=== PATIENT | male | born 1955 | race Two or more races ===

== ENCOUNTER 2020-01-10 10:03 | Inpatient (IN) | payer OTHER, MEDICAID ==
[~2020-01-10] VITALS: Ht 154.9 cm; Wt 59.0 kg
[2020-01-10 10:57] LABS: BASO # 0.1 x10^3/uL (0.0-0.2); BASO % 1 % (0-3); EOS # 0.1 x10^3/uL (0.0-0.7); EOS % 1 % (0-3); HEMATOCRIT 43.5 % (39.0-53.0); LYMPH # 1.4 x10^3/uL (1.0-4.8); LYMPH % 13 % (24-48); MEAN CORPUSCULAR HEMOGLOBIN 32 pg (25-35); MEAN CORPUSCULAR HGB CONC 35 g/dL (31-37); MEAN CORPUSCULAR VOLUME 94 fL (79-100); MONO # 1.2 x10^3/uL (0.0-1.1); MONO % 11 % (0-9); NEUT # 8.2 x10^3/uL (1.8-7.7); NEUT % 75 % (31-73); PLATELET COUNT 546 x10^3/uL (140-400); RED BLOOD COUNT 4.64 x10^6/uL (4.30-5.70); RED CELL DISTRIBUTION WIDTH 13.2 % (11.5-14.5)
[2020-01-10 10:59] LABS: BILIRUBIN,URINE NEGATIVE (NEG); CLARITY,URINE CLEAR; COLOR,URINE YELLOW; NITRITE,URINE NEGATIVE (NEG); PROTEIN,URINE NEGATIVE (NEG-TRACE); UROBILINOGEN,URINE 0.2 mg/dL (0.2 mg/dL)
[2020-01-10 11:06] LABS: PROTHROMBIN TIME PATIENT 13.5 SEC (11.7-14.0)
[2020-01-10 11:07] LABS: BACTERIA,URINE 0 /HPF (0-FEW); RBC,URINE 0 /HPF (0-2); SQUAMOUS EPITHELIAL CELL,UR OCC /LPF; WBC,URINE 0 /HPF (0-4)
--- NOTE | 2020-01-10 11:35 | RAD ---
Single AP view of the chest. Comparison: 08/20/2011. Indication: Cough and shortness of air Findings: Sternotomy wires and CABG clips are reidentified. The heart is enlarged but stable. There is no pneumothorax or effusion. Mixed bilateral basilar interstitial and airspace disease. Impression: 1. Mixed bilateral predominantly basilar but involving all lung zones interstitial and airspace disease suggests atypical infection or chronic fibrotic change/inflammatory change. Electronically signed by: Jaleel Linares MD (01/10/2020 11:32 AM) [id number]
--- NOTE | 2020-01-10 11:42 | PHYS DOC ---
Past Medical History Past Medical History: High Cholesterol, Hypertension Additional Past Medical Histor: CAROTID ARTERY STENOSIS, BARRETTS ESOPHAGUS Additional Past Surgical Histo: CABG Smoking Status: Current Every Day Smoker Additional Information: PT USES VAPE PEN. Alcohol Use: None General Adult EDM: Chief Complaint: SHORTNESS OF BREATH HPI: HPI: Patient is a 64 year old male who was diagnosed with COVID-19 infection about 2 weeks ago at [facility]. Patient was discharged home without any treatment at this time. 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 Patient went to see her family doctor today for reevaluation, he was found to be hypoxic in the clinic with oxygen saturation of 85% on room air. Patient was a former smoker, he is has stopped smoking AND TOOK UP VAPING Review of Systems: Review of Systems: Constitutional: Denies fever or chills. [] Eyes: Denies change in visual acuity. [] HENT: Denies nasal congestion or sore throat. [] Respiratory: Positive for cough or shortness of breath. [] Cardiovascular: Denies chest pain or edema. [] GI: Denies abdominal pain, nausea, vomiting, bloody stools or diarrhea. [] : Denies dysuria. [] Musculoskeletal: Denies back pain or joint pain. [] Integument: Denies rash. [] Neurologic: Denies headache, focal weakness or sensory changes. [] Endocrine: Denies polyuria or polydipsia. [] Lymphatic: Denies swollen glands. [] Psychiatric: Denies depression or anxiety. [] Heart Score: Risk Factors: Risk Factors: DM, Current or recent (<one month) smoker, HTN, HLP, family history of CAD, obesity. Risk Scores: Score 0 - 3: 2.5% MACE over next 6 weeks - Discharge Home Score 4 - 6: 20.3% MACE over next 6 weeks - Admit for Clinical Observation Score 7 - 10: 72.7% MACE over next 6 weeks - Early Invasive Strategies Allergies: Allergies: Allergies Coded Allergies Type Severity Reaction Last Updated Verified No Known Drug Allergies 01/10/20 No Physical Exam: PE: Constitutional: Well developed, well nourished, no acute distress, non-toxic appearance. [] HENT: Normocephalic, atraumatic, bilateral external ears normal, oropharynx moist, no oral exudates, nose normal. [] Eyes: PERRLA, EOMI, conjunctiva normal, no discharge. [] Neck: Normal range of motion, no tenderness, supple, no stridor. [] Cardiovascular:Heart rate regular rhythm, no murmur [] Lungs & Thorax: Diffuse crackles throughout lung perez, no respiratory distress Abdomen: Bowel sounds normal, soft, no tenderness, no masses, no pulsatile masses. [] Skin: Warm, dry, no erythema, no rash. [] Back: No tenderness, no CVA tenderness. [] Extremities: No tenderness, no cyanosis, no clubbing, ROM intact, no edema. [] Neurologic: Alert and oriented X 3, normal motor function, normal sensory function, no focal deficits noted. [] Psychologic: Affect normal, judgement normal, mood normal. [] Current Patient Data: Labs: Laboratory Tests Test 01/10/20 10:35 White Blood Count 11.0 x10^3/uL (4.0-11.0) Red Blood Count 4.64 x10^6/uL (4.30-5.70) Hemoglobin 15.0 g/dL (13.0-17.5) Hematocrit 43.5 % (39.0-53.0) Mean Corpuscular Volume 94 fL (79-100) Mean Corpuscular Hemoglobin 32 pg (25-35) Mean Corpuscular Hemoglobin Concent 35 g/dL (31-37) Red Cell Distribution Width 13.2 % (11.5-14.5) Platelet Count 546 x10^3/uL (140-400) H Neutrophils (%) (Auto) 75 % (31-73) H Lymphocytes (%) (Auto) 13 % (24-48) L Monocytes (%) (Auto) 11 % (0-9) H Eosinophils (%) (Auto) 1 % (0-3) Basophils (%) (Auto) 1 % (0-3) Neutrophils # (Auto) 8.2 x10^3/uL (1.8-7.7) H Lymphocytes # (Auto) 1.4 x10^3/uL (1.0-4.8) Monocytes # (Auto) 1.2 x10^3/uL (0.0-1.1) H Eosinophils # (Auto) 0.1 x10^3/uL (0.0-0.7) Basophils # (Auto) 0.1 x10^3/uL (0.0-0.2) Prothrombin Time 13.5 SEC (11.7-14.0) Prothrombin Time INR 1.1 (0.8-1.1) Activated Partial Thromboplast Time 36 SEC (24-38) Urine Collection Type Void Urine Color Yellow Urine Clarity Clear Urine pH 6.0 (<5.0-8.0) Urine Specific [place] <=1.005 (1.000-1.030) Urine Protein Negative mg/dL (NEG-TRACE) Urine Glucose (UA) Negative mg/dL (NEG) Urine Ketones (Stick) Negative mg/dL (NEG) Urine Blood Negative (NEG) Urine Nitrite Negative (NEG) Urine Bilirubin Negative (NEG) Urine Urobilinogen Dipstick 0.2 mg/dL (0.2 mg/dL) Urine Leukocyte Esterase Negative (NEG) Urine RBC 0 /HPF (0-2) Urine WBC 0 /HPF (0-4) Urine Squamous Epithelial Cells Occ /LPF Urine Bacteria 0 /HPF (0-FEW) Lactic Acid Level 1.4 mmol/L (0.4-2.0) Troponin I Quantitative < 0.017 ng/mL (0.000-0.055) KK-Zgo-T-Type Natriuretic Peptide 192 pg/mL (0-124) H Laboratory Tests 01/10/20 10:35 Vital Signs: Vital Signs Date Time Temp Pulse Resp B/P (MAP) Pulse Ox O2 Delivery O2 Flow Rate FiO2 01/10/20 10:10 98.0 71 18 132/79 (96) 94 Room Air 98.0 EKG: EKG: [EKG was done at 1014, sinus rhythm, heart rate 68 bpm, incomplete right bundle branch block. Radiology/Procedures: Radiology/Procedures: [][facility] [address] [place] [address] IMAGING REPORT Signed PATIENT: NII SCHAFER: [id number] : 1955 LOCATION: ER AGE: 64 SEX: M EXAM STATUS: REG ER ORD. PHYSICIAN: FRANKLIN PENA DO REASON: COUGH, SHORTNESS OF AIR PROCEDURE: CHEST AP ONLY Single AP view of the chest. Comparison: 08/20/2011. Indication: Cough and shortness of air Findings: Sternotomy wires and CABG clips are reidentified. The heart is enlarged but stable. There is no pneumothorax or effusion. Mixed bilateral basilar interstitial and airspace disease. Impression: 1. Mixed bilateral predominantly basilar but involving all lung zones interstitial and airspace disease suggests atypical infection or chronic fibrotic change/inflammatory change. Electronically signed by: Jaleel Linares MD (01/10/2020 11:32 AM) [id number] DICTATED and SIGNED BY: JALEEL LINARES MD DATE: 01/10/20 1132 Course & Med Decision Making: Course & Med Decision Making Pertinent Labs and Imaging studies reviewed. (See chart for details) Patient is a 64-year-old male who was diagnosed with COVID-19 infection about 2 weeks ago at [facility]. Patient was discharged home without any treatment at this time. 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 Patient went to see her family doctor today for reevaluation, he was found to be hypoxic in the clinic with oxygen saturation of 85% on room air. Patient was a former smoker, he is has stopped smoking AND TOOK UP VAPING. Patient chest x-ray showed diffuse bilateral infiltration consistent with COVID-19 pneumonia. He is hypoxic on room air, his saturations run between 89 to 92% on room air. Patient is not on oxygen at home. Patient will need to be admitted to hospital for further evaluation and treatment. Dr. Ashby hospitalist on-call was called who agreed to admit the patient. Dr. Ashby would like pulmonology and infectious disease to be consulted. David Disclaimer: David Disclaimer: This electronic medical record was generated, in whole or in part, using a voice recognition dictation system. Departure Departure Impression: Primary Impression: Pneumonia due to COVID-19 virus Additional Impression: Hypoxia Disposition: ADMITTED INPATIENT Admitting Physician: YAHAIRA (Dr. ASHBY) Referrals: UNKNOWN PCP NAME (PCP) Justicifation of Admission Dx: Justifications for Admission: Justification of Admission Dx: Yes Comminuty Aquired Pneumonia: Hypoxemia FRANKLIN PENA DO Jan 10, 2020 11:42
[2020-01-10 11:51] LABS: CREATININE 0.9 mg/dL (0.7-1.3); GFR 84.7; POTASSIUM 4.4 mmol/L (3.5-5.1)
[2020-01-10 11:57] LABS: ALBUMIN 2.9 g/dL (3.4-5.0); ALBUMIN/GLOBULIN RATIO 0.6 (1.0-1.7); TOTAL BILIRUBIN 0.3 mg/dL (0.2-1.0)
[2020-01-10] MEDS ORDERED: cefTRIAXone IV Push 1 GM VIAL. IVP ONE (14:30)
[2020-01-10] MEDS ORDERED: methylPREDNISolone SOD SUCC PF 125 MG/2 ML VIAL. IV ONE (15:00)
[2020-01-10] MEDS ORDERED: ONDANSETRON PF 4 MG/2 ML VIAL. IV PRN (15:15)
[2020-01-10] MEDS ORDERED: ATOR40TA59 PO (17:04)
[2020-01-10] MEDS ORDERED: PANT40TA77 PO (17:04)
[2020-01-10] MEDS ORDERED: LISI10TA2 PO (17:04)
[2020-01-10] MEDS ORDERED: NAPR-514 PO (17:04)
[2020-01-10] MEDS ORDERED: TRAZ-123 PO (17:04)
[2020-01-10] MEDS ORDERED: ATEN50TA PO (17:04)
[2020-01-10] MEDS ORDERED: ACET500T68 PO (17:04)
[2020-01-10] MEDS ORDERED: ASPI-886 PO (17:04)
[2020-01-10 19:00] VITALS: BP 119/66
--- NOTE | 2020-01-10 19:50 | CONS ---
DATE OF CONSULTATION: PULMONARY CONSULTATION ATTENDING PHYSICIAN: Dr. Ashby. REASON FOR CONSULTATION: COVID-19 pneumonia. HISTORY OF PRESENT ILLNESS: The patient is a 64-year-old male who does not speak Malian well. He was diagnosed with COVID-19 infection about 2 weeks ago at [facility]. He was discharged home without any treatment. 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 He finished the antibiotic course, but was not feeling any better. He was found to be hypoxic in the clinic with oxygen saturation of 85% on room air. As a result, he was sent to the hospital. I talked to the patient via telemedicine consult. He does not appear to be in any obvious respiratory distress. He is currently on 2 liters of nasal cannula, saturation 97%. I have reviewed the patient's chest x-ray and it shows bilateral faint interstitial infiltrates. The patient is unable to give much history due to language barrier, but he denies any shortness of breath and has a very occasional cough, no chest pain and no leg edema. PAST MEDICAL HISTORY: Significant for history of dyslipidemia, hypertension. PAST SURGICAL HISTORY: Carotid artery stenosis and Olsen's esophagus surgery. CABG. SOCIAL HISTORY: He denies current tobacco. Per H and P, he does smoke cigarettes. ALLERGIES: None. MEDICATIONS: Reviewed as listed in the MRAD including Rocephin. REVIEW OF SYSTEMS: Unable to obtain from the patient due to language barrier. PHYSICAL EXAMINATION: On examination which was performed via telemedicine: VITAL SIGNS: Reviewed. His blood pressure is stable, pulse ox 97% on 2 liters. He does not appear to be in any obvious respiratory distress. SKIN: With no obvious rash. EXTREMITIES: Legs with no edema. LABORATORY DATA: Reviewed. White cell count 11.0, hemoglobin 15.0 and platelets are 546. BUN 12 and creatinine 0.9. IMPRESSION: 1. Acute hypoxic respiratory failure secondary to COVID-19 pneumonia. 2. Abnormal chest x-ray consistent with COVID-19 pneumonia. RECOMMENDATIONS: 1. We will continue with present oxygen at 2 liters and keep saturation 92 and above. 2. Empiric antibiotics. 3. Monitor the course of the disease. We will watch for any deterioration and hypoxia. At that time, we may consider plasma as well as IL-6 inhibitor, tocilizumab. 4. We may also consider IV steroids. 5. Discussed with the patient's RN. We will follow along with you. GUNJAN IRELAND MD DR: CECILE/latricia JOB#: [id number] / [id number]
--- NOTE | 2020-01-10 20:13 | HP ---
ADMIT DATE: 01/10/2020 CHIEF COMPLAINT: Shortness of breath. HISTORY OF PRESENT ILLNESS: The patient is a pleasant 64-year-old male who has recently tested positive for COVID-19 at a clinic at [facility]. Now, he is short of breath. He presented to our ER for evaluation. He is noted to be hypoxic at 85% on room air. Describes his symptoms as very anxiety producing. He used to smoke cigarettes, but quit. Moving makes it worse and sitting still makes it better. We were concerned he could have recurrent COVID-19 with progression of his pneumonia. The patient will be admitted. We will consult Dr. Sharpe. PAST MEDICAL HISTORY: Recent COVID-19, previous tobacco abuse, hyperlipidemia, carotid artery stenosis, Olsen's esophagus, coronary artery bypass grafting, continued tobacco abuse. ALLERGIES: None. FAMILY HISTORY: Diabetes. SOCIAL HISTORY: He has apparently quit smoking recently. Does not drink or take drugs. MEDICATIONS: Reviewed, please refer to the MRAD. REVIEW OF SYSTEMS: GENERAL: No history of weight change, weakness or fevers. SKIN: No bruising, hair changes or rashes. EYES: No blurred, double or loss of vision. NOSE AND THROAT: No history of nosebleeds, hoarseness or sore throat. HEART: No history of palpitations, chest pain or shortness of breath on exertion. PULMONARY: He complains of shortness of breath. GASTROINTESTINAL: Denies changes in appetite, nausea, vomiting, diarrhea or constipation. GENITOURINARY: No history of frequency, urgency, hesitancy or nocturia. NEUROLOGIC: Denies history of numbness, tingling, tremor or weakness. PSYCHIATRIC: No history of panic, anxiety or depression. ENDOCRINE: No history of heat or cold intolerance, polyuria or polydipsia. EXTREMITIES: Denies muscle weakness, joint pain, pain on walking or stiffness. PHYSICAL EXAMINATION: VITALS: Within normal limits and are stable. GENERAL: No apparent distress. Alert and oriented. HEENT: Normal cephalic atraumatic, external auditory canals are patent EYES: Extraocular muscles are intact, pupils are equally round and reactive to light and accommodation MUSCULOSKELETAL: Well developed, well nourished, good range of motion ENDOCRINE: No thyromegaly was palpated LYMPHATICS: No cervical chain or axillary nodes were noted HEMATOPOIETIC: No bruising NECK: Supple, no JVD, no thyromegaly was noted. LUNGS: He has slight bibasilar crackles. HEART: RRR, S1, S2 present. Peripheral pulses intact, no obvious murmurs were noted. ABDOMEN: Soft, nontender. Positive bowel sounds no organomegaly, normal bowel sounds. EXTREMITIES: Without any cyanosis, clubbing, or edema. Pedal pulses intact, Homans sign is negative. NEUROLOGIC: Normal speech, normal tone. A & O x3, moves all extremities, no obvious focal deficits. PSYCHIATRIC: Normal affect, normal mood. Stable. SKIN: No ulcerations or rashes, good skin turgor, no jaundice. VASCULAR: Good capillary refill, neurovascular bundle appears to be intact. LABORATORY DATA: White count is 11. Electrolytes are normal. Liver function tests are within normal limits. INR is 1.1. Urinalysis negative. IMAGING: Chest x-ray shows mixed bilateral predominantly basilar but involving all lung zones, interstitial and airspace disease, suggestive of atypical infection or chronic fibrotic changes or inflammatory changes. ASSESSMENT AND PLAN: Hypoxia, shortness of breath, abnormal chest x-ray concerned for a recurrent or persistent COVID-19. The patient has been admitted. We are consulting Dr. Sharpe. IV antibiotics, breathing treatments, oxygen, home meds, DVT prophylaxis. Full code. IV Solu-Medrol, p.r.nJackelin Friedman. LARS SHELLEY DO DR: TRESA/latricia JOB#: [id number] / [id number]
--- NOTE | 2020-01-10 20:24 | NUR ---
Pt has paper work from visit today at [facility]. He was seen for shortness of breath and body aches. Assessment and Plan states Disease caused by 2019 novel coronavirus. Pt reports he and his have recently tested positive.
[2020-01-10] MEDS: methylPREDNISolone SOD SUCC PF 40 MG/ML VIAL. IV SCH (21:34)
[2020-01-10] MEDS ORDERED: ACETAMINOPHEN 500 MG TABLET PO PRN (22:30)
[2020-01-10] MEDS: traZODone 100 MG TABLET. PO SCH (22:43)
[2020-01-10] MEDS: ATORVASTATIN CALCIUM 40 MG TABLET. PO SCH (22:44)
[2020-01-10] MEDS: NAPROXEN 500 MG TABLET PO SCH (22:44)
[2020-01-10 23:00] VITALS: BP 118/55
[2020-01-11 02:44] VITALS: BP 104/55
--- NOTE | 2020-01-11 03:07 | EKG ---
[facility] [address] [place] [address] Test Date: 2020-01-10 Test Time: 10:14:42 Pat Name: HARLAN SCHAFER Department: Room: Gender: M Charge Nurse: : 1955 Requested By: FRANKLIN PENA Order Number: [id number] Reading MD: Measurements Intervals Lawrence Rate: 68 P: 44 ND: 168 QRS: 0 QRSD: 80 T: 41 QT: 390 QTc: 419 Interpretive Statements SINUS RHYTHM LEFTWARD AXIS INCOMPLETE RIGHT BUNDLE BRANCH BLOCK OTHERWISE NORMAL ECG RI6.01 No previous ECG available for comparison
[2020-01-11] MEDS: methylPREDNISolone SOD SUCC PF 40 MG/ML VIAL. IV SCH ×3 (06:13→22:09)
[2020-01-11 07:00] VITALS: BP 125/69
[2020-01-11] MEDS: NAPROXEN 500 MG TABLET PO SCH ×2 (08:55→22:17)
[2020-01-11] MEDS: ATENOLOL 50 MG TABLET. PO SCH (08:56)
[2020-01-11] MEDS: PANTOPRAZOLE 40 MG TABLET.DR. PO SCH (08:57)
[2020-01-11] MEDS: LISINOPRIL 10 MG TABLET PO SCH (08:57)
[2020-01-11] MEDS: ASPIRIN ENTERIC COATED 81 MG TABLET.DR. PO SCH (08:57)
--- NOTE | 2020-01-11 09:23 | PDOC ---
Infectious Disease Note Vital Sign Vital Signs Vital Signs Date Time Temp Pulse Resp B/P (MAP) Pulse Ox O2 Delivery O2 Flow Rate FiO2 01/11/20 08:57 86 125/69 01/11/20 07:00 99.0 20 92 99.0 01/11/20 02:44 Room Air 01/10/20 23:00 2.0 Labs Lab Laboratory Tests Test 01/10/20 10:35 White Blood Count 11.0 x10^3/uL (4.0-11.0) Red Blood Count 4.64 x10^6/uL (4.30-5.70) Hemoglobin 15.0 g/dL (13.0-17.5) Hematocrit 43.5 % (39.0-53.0) Mean Corpuscular Volume 94 fL (79-100) Mean Corpuscular Hemoglobin 32 pg (25-35) Mean Corpuscular Hemoglobin Concent 35 g/dL (31-37) Red Cell Distribution Width 13.2 % (11.5-14.5) Platelet Count 546 x10^3/uL (140-400) Neutrophils (%) (Auto) 75 % (31-73) Lymphocytes (%) (Auto) 13 % (24-48) Monocytes (%) (Auto) 11 % (0-9) Eosinophils (%) (Auto) 1 % (0-3) Basophils (%) (Auto) 1 % (0-3) Neutrophils # (Auto) 8.2 x10^3/uL (1.8-7.7) Lymphocytes # (Auto) 1.4 x10^3/uL (1.0-4.8) Monocytes # (Auto) 1.2 x10^3/uL (0.0-1.1) Eosinophils # (Auto) 0.1 x10^3/uL (0.0-0.7) Basophils # (Auto) 0.1 x10^3/uL (0.0-0.2) Prothrombin Time 13.5 SEC (11.7-14.0) Prothromb Time International Ratio 1.1 (0.8-1.1) Activated Partial Thromboplast Time 36 SEC (24-38) Urine Collection Type Void Urine Color Yellow Urine Clarity Clear Urine pH 6.0 (<5.0-8.0) Urine Specific Mineral <=1.005 (1.000-1.030) Urine Protein Negative mg/dL (NEG-TRACE) Urine Glucose (UA) Negative mg/dL (NEG) Urine Ketones (Stick) Negative mg/dL (NEG) Urine Blood Negative (NEG) Urine Nitrite Negative (NEG) Urine Bilirubin Negative (NEG) Urine Urobilinogen Dipstick 0.2 mg/dL (0.2 mg/dL) Urine Leukocyte Esterase Negative (NEG) Urine RBC 0 /HPF (0-2) Urine WBC 0 /HPF (0-4) Urine Squamous Epithelial Cells Occ /LPF Urine Bacteria 0 /HPF (0-FEW) Sodium Level 136 mmol/L (136-145) Potassium Level 4.4 mmol/L (3.5-5.1) Chloride Level 102 mmol/L (98-107) Carbon Dioxide Level 27 mmol/L (21-32) Anion Gap 7 (6-14) Blood Urea Nitrogen 12 mg/dL (8-26) Creatinine 0.9 mg/dL (0.7-1.3) Estimated GFR (Cockcroft-Gault) 84.7 BUN/Creatinine Ratio 13 (6-20) Glucose Level 94 mg/dL (70-99) Lactic Acid Level 1.4 mmol/L (0.4-2.0) Calcium Level 9.0 mg/dL (8.5-10.1) Total Bilirubin 0.3 mg/dL (0.2-1.0) Aspartate Amino Transf (AST/SGOT) 27 U/L (15-37) Alanine Aminotransferase (ALT/SGPT) 48 U/L (16-63) Alkaline Phosphatase 71 U/L (46-116) Troponin I Quantitative < 0.017 ng/mL (0.000-0.055) XO-Sup-P-Type Natriuretic Peptide 192 pg/mL (0-124) Total Protein 8.0 g/dL (6.4-8.2) Albumin 2.9 g/dL (3.4-5.0) Albumin/Globulin Ratio 0.6 (1.0-1.7) Micro CXR Impression: 1. Mixed bilateral predominantly basilar but involving all lung zones interstitial and airspace disease suggests atypical infection or chronic fibrotic change/inflammatory change Objective Assessment Leukocytosis Acute Hypoxic Resp failure - recent Azithromycin and Cephalexin H/o COVID CAD H/o Vaping Plan Plan of Care Cont steroids hold additional abx Plasma or additional COVID therapy per Pulm Thank you D/w daughter - in law # [id number] SHAYLEE GARCIA MD Jan 11, 2020 09:23
--- NOTE | 2020-01-11 10:41 | CONS ---
DATE OF CONSULTATION: 01/11/2020 INFECTIOUS DISEASE CONSULTATION NOTE LOCATION: The patient's room #658. REQUESTING PHYSICIAN: Dr. Caldwell. REASON FOR CONSULTATION: COVID. HISTORY OF PRESENT ILLNESS: The patient is a pleasant 64-year-old [place] gentleman who reportedly tested positive at [facility] several weeks ago, but was sent home without therapy. However, at home, he was having chills, more shortness of air, occasional cough and was started on azithromycin and cephalexin at home. Despite that, he presented to [facility] with increasing shortness of air on 01/10/2020. On arrival, he had a white count of 11 with 75% segs. Chest x-ray was performed, showed mixed bilateral predominantly basilar involving all lung zones interstitial airspace disease. He was started on steroids and given a dose of Rocephin and has been admitted to the hospital. Currently, he is sitting upright in bed, states he is feeling much better and he is on room air satting 92%. PAST MEDICAL HISTORY: Positive for history of the above-mentioned COVID, has a history of dyslipidemia, hypertension, and carotid stenosis. PAST SURGICAL HISTORY: He also has surgery for carotid stenosis, Olsen's esophagitis and a CABG procedure. REVIEW OF SYSTEMS: Otherwise, he did have some diarrhea around his COVID diagnosis, but this has improved. Review of systems is otherwise negative except for mentioned above. ALLERGIES: No known drug allergies. 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 CURRENT MEDICATIONS: Include Tylenol, Ecotrin, atenolol, Lipitor, Rocephin x 1, Prinivil, Solu-Medrol 60 q.8 hours, Naprosyn, Zofran, Protonix, and trazodone. PHYSICAL EXAMINATION: VITAL SIGNS: Temperature 99, pulse 86, respirations 20, blood pressure 125/69, and satting 92%. CONSTITUTIONAL: He is sitting upright in bed. He looks well. He is in no acute distress. He smiled. HEENT: Pupils equal and reactive. Normal conjunctivae. Oral cavity, pharynx is clear. No thrush. NECK: Supple. LUNGS: Without wheeze. HEART: S1 and S2. ABDOMEN: Soft, nontender. No guarding or rebound. EXTREMITIES: No clubbing, cyanosis or gross edema. SKIN: Warm to touch without generalized rash. NEUROLOGIC: He is nonfocal and appropriate. PSYCHIATRIC: Affect is pleasant. LABORATORY DATA: White count was 11, hemoglobin was 15, and platelets were 546 with 75% neutrophils. Creatinine was 0.9. Normal liver function study tests. Urinalysis was clean. Radiology reviewed in the history of present illness. IMPRESSION: 1. Leukocytosis. 2. Acute hypoxic respiratory failure, recent azithromycin and cephalexin. 3. History of COVID. 4. Coronary artery disease. 5. History of vaping. RECOMMENDATIONS: We will continue steroids, hold additional antibiotics, plasma, additional COVID therapy per Pulmonary, this was discussed with the [id number]. Discussed with nursing. Thank you ____ for allowing me to participate in this patient's care. Should you have any further questions, please do not hesitate to contact me. SHAYLEE GARCIA MD DR: RUI/latricia JOB#: [id number] / [id number] SENDY
[2020-01-11 11:00] VITALS: BP 139/74
--- NOTE | 2020-01-11 11:38 | PDOC ---
PULMONARY PROGRESS NOTES Subjective no soa Vitals Vital Signs Date Time Temp Pulse Resp B/P (MAP) Pulse Ox O2 Delivery O2 Flow Rate FiO2 01/11/20 11:00 96.2 88 18 139/74 (95) 93 96.2 01/11/20 02:44 Room Air 01/10/20 23:00 2.0 General: Alert, No acute distress Lungs: Clear Cardiovascular: S1 Abdomen: Soft Neuro Exam: Alert Extremities: No Edema Skin: Warm Labs Laboratory Tests Test 01/10/20 10:35 White Blood Count 11.0 x10^3/uL (4.0-11.0) Red Blood Count 4.64 x10^6/uL (4.30-5.70) Hemoglobin 15.0 g/dL (13.0-17.5) Hematocrit 43.5 % (39.0-53.0) Mean Corpuscular Volume 94 fL (79-100) Mean Corpuscular Hemoglobin 32 pg (25-35) Mean Corpuscular Hemoglobin Concent 35 g/dL (31-37) Red Cell Distribution Width 13.2 % (11.5-14.5) Platelet Count 546 x10^3/uL (140-400) Neutrophils (%) (Auto) 75 % (31-73) Lymphocytes (%) (Auto) 13 % (24-48) Monocytes (%) (Auto) 11 % (0-9) Eosinophils (%) (Auto) 1 % (0-3) Basophils (%) (Auto) 1 % (0-3) Neutrophils # (Auto) 8.2 x10^3/uL (1.8-7.7) Lymphocytes # (Auto) 1.4 x10^3/uL (1.0-4.8) Monocytes # (Auto) 1.2 x10^3/uL (0.0-1.1) Eosinophils # (Auto) 0.1 x10^3/uL (0.0-0.7) Basophils # (Auto) 0.1 x10^3/uL (0.0-0.2) Prothrombin Time 13.5 SEC (11.7-14.0) Prothromb Time International Ratio 1.1 (0.8-1.1) Activated Partial Thromboplast Time 36 SEC (24-38) Urine Collection Type Void Urine Color Yellow Urine Clarity Clear Urine pH 6.0 (<5.0-8.0) Urine Specific [place] <=1.005 (1.000-1.030) Urine Protein Negative mg/dL (NEG-TRACE) Urine Glucose (UA) Negative mg/dL (NEG) Urine Ketones (Stick) Negative mg/dL (NEG) Urine Blood Negative (NEG) Urine Nitrite Negative (NEG) Urine Bilirubin Negative (NEG) Urine Urobilinogen Dipstick 0.2 mg/dL (0.2 mg/dL) Urine Leukocyte Esterase Negative (NEG) Urine RBC 0 /HPF (0-2) Urine WBC 0 /HPF (0-4) Urine Squamous Epithelial Cells Occ /LPF Urine Bacteria 0 /HPF (0-FEW) Sodium Level 136 mmol/L (136-145) Potassium Level 4.4 mmol/L (3.5-5.1) Chloride Level 102 mmol/L (98-107) Carbon Dioxide Level 27 mmol/L (21-32) Anion Gap 7 (6-14) Blood Urea Nitrogen 12 mg/dL (8-26) Creatinine 0.9 mg/dL (0.7-1.3) Estimated GFR (Cockcroft-Gault) 84.7 BUN/Creatinine Ratio 13 (6-20) Glucose Level 94 mg/dL (70-99) Lactic Acid Level 1.4 mmol/L (0.4-2.0) Calcium Level 9.0 mg/dL (8.5-10.1) Total Bilirubin 0.3 mg/dL (0.2-1.0) Aspartate Amino Transf (AST/SGOT) 27 U/L (15-37) Alanine Aminotransferase (ALT/SGPT) 48 U/L (16-63) Alkaline Phosphatase 71 U/L (46-116) Troponin I Quantitative < 0.017 ng/mL (0.000-0.055) FP-Dho-L-Type Natriuretic Peptide 192 pg/mL (0-124) Total Protein 8.0 g/dL (6.4-8.2) Albumin 2.9 g/dL (3.4-5.0) Albumin/Globulin Ratio 0.6 (1.0-1.7) Medications Active Scripts Medications Dose Route/Sig Max Daily Dose Days Date Category Acetaminophen 500 Mg Tablet 2 Tab PO PRN Q8HRS PRN 15 01/10/20 Reported Trazodone Hcl 100 Mg Tablet 1 Tab PO QHS 01/10/20 Reported Protonix (Pantoprazole Sodium) 40 Mg Tablet.dr 40 Mg PO DAILYAC 01/10/20 Reported Naproxen 500 Mg Tablet 1 Tab PO BID 30 01/10/20 Reported Lisinopril 10 Mg Tablet 1 Tab PO DAILY 01/10/20 Reported Atorvastatin Calcium 40 Mg Tablet 1 Tab PO DAILY 01/10/20 Reported Atenolol 50 Mg Tablet 1 Tab PO DAILY 01/10/20 Reported Aspirin Ec (Aspirin) 81 Mg Tablet.dr 1 Tab PO DAILY 01/10/20 Reported Impression . 1. Acute hypoxic respiratory failure secondary to COVID-19 pneumonia. 2. Abnormal chest x-ray consistent with COVID-19 pneumonia. Plan . RECOMMENDATIONS: 1. We will continue with present oxygen at 2 liters and keep saturation 92 and above. 2. Empiric antibiotics. 3. Monitor the course of the disease. We will watch for any deterioration and hypoxia. At that time, we may consider plasma as well as IL-6 inhibitor, tocilizumab. 4. IV steroids. 5. Discussed with the patient's RN. fever improving possible dc in 24 hrs GUNJAN IRELAND MD Jan 11, 2020 11:38
--- NOTE | 2020-01-11 11:54 | PDOC ---
[facility] [facility] PROGRESS NOTE Chief Complaint Chief Complaint Respiratory distress COVID-19 pneumonia HLD CAD s/p CABG Olsen esophagus History of Present Illness History of Present Illness 01/11/2020 Patient seen and examined Discussed with [id number] Discussed with RN Chart reviewed Vitals/I&O Vitals/I&O: Vital Signs Date Time Temp Pulse Resp B/P (MAP) Pulse Ox O2 Delivery O2 Flow Rate FiO2 01/11/20 11:00 96.2 88 18 139/74 (95) 93 96.2 01/11/20 02:44 Room Air 01/10/20 23:00 2.0 I & O 01/10/20 01/10/20 01/11/20 15:00 23:00 07:00 Intake Total 300 ml Output Total 500 ml 1300 ml Balance -500 ml -1000 ml Physical Exam Physical Exam: GENERAL: No apparent distress. Alert and oriented. HEENT: Normal cephalic atraumatic, external auditory canals are patent EYES: Extraocular muscles are intact, pupils are equally round and reactive to light and accommodation. MUSCULOSKELETAL: Well developed, well nourished, good range of motion ENDOCRINE: No thyromegaly was palpated LYMPHATICS: No cervical chain or axillary nodes were noted HEMATOPOIETIC: No bruising NECK: Supple, no JVD, no thyromegaly was noted. LUNGS: He has slight bibasilar crackles. HEART: RRR, S1, S2 present. Peripheral pulses intact, no obvious murmurs were noted. ABDOMEN: Soft, nontender. Positive bowel sounds no organomegaly, normal bowel sounds. EXTREMITIES: Without any cyanosis, clubbing, or edema. Pedal pulses intact, Homans sign is negative. NEUROLOGIC: Normal speech, normal tone. A & O x3, moves all extremities, no obvious focal deficits. PSYCHIATRIC: Normal affect, normal mood. Stable. SKIN: No ulcerations or rashes, good skin turgor, no jaundice. VASCULAR: Good capillary refill, neurovascular bundle appears to be intact. General: Alert, Cooperative, No acute distress Heart: Regular rate Lungs: Crackles Abdomen: Soft, No tenderness Extremities: No cyanosis Skin: No significant lesion Assessment and Plan Assessmemt and Plan Problems Medical Problems: (1) Hypoxia Status: Acute (2) Pneumonia due to COVID-19 virus Status: Acute ASSESSMENT Respiratory distress COVID-19 pneumonia HLD CAD s/p CABG Olsen esophagus PLAN Await COVID-19 testing Duo nebs Supplementary O2 IV antibiotics Appreciate pulmonary input Comment Review of Relevant I have reviewed the following items lexie (where applicable) has been applied. Medications: Current Medications Medications (Trade) Dose Ordered Sig/Yeny Route PRN Reason Start Time Stop Time Status Last Admin Dose Admin Ceftriaxone Sodium (Rocephin) 1 gm 1X ONCE IVP 01/10/20 14:30 01/10/20 14:31 DC 01/10/20 14:34 Methylprednisolone Sodium Succinate (SOLU-Medrol 125MG VIAL) 125 mg 1X ONCE IV 01/10/20 15:00 01/10/20 15:01 DC 01/10/20 16:12 Methylprednisolone Sodium Succinate (SOLU-Medrol 40MG VIAL) 60 mg Q8HRS IV 01/10/20 22:00 01/11/20 06:13 Aspirin (Ecotrin) 81 mg DAILYWBKFT PO 01/11/20 08:00 01/11/20 08:57 Atenolol (Tenormin) 50 mg DAILY PO 01/11/20 09:00 01/11/20 08:56 Atorvastatin Calcium (Lipitor) 40 mg HS PO 01/10/20 22:30 01/10/20 22:44 Lisinopril (Prinivil) 10 mg DAILY PO 01/11/20 09:00 01/11/20 08:57 Naproxen (Naprosyn) 500 mg BID PO 01/10/20 22:30 01/11/20 08:55 Pantoprazole Sodium (Protonix) 40 mg DAILYAC PO 01/11/20 07:30 01/11/20 08:57 Trazodone HCl (Desyrel) 100 mg QHS PO 01/10/20 22:30 01/10/20 22:43 Justicifation of Admission Dx: Justifications for Admission: Justification of Admission Dx: Yes Comminuty Aquired Pneumonia: Hypoxemia LARS SHELLEY III DO Jan 11, 2020 11:53
[2020-01-11 15:00] VITALS: BP 113/58
--- NOTE | 2020-01-11 15:57 | NUR ---
SW following. Spoke with RN and reviewed chart. Pt is a possible discharge to home tomorrow, 01/12/2020. Pt on IV fluids. Pt on 2l 02. SW to continue following.
[2020-01-11 19:59] VITALS: BP 132/71
[2020-01-11] MEDS: ATORVASTATIN CALCIUM 40 MG TABLET. PO SCH (22:17)
[2020-01-11] MEDS: traZODone 100 MG TABLET. PO SCH (22:17)
[2020-01-11 22:47] VITALS: BP 137/72
[2020-01-12 03:00] VITALS: BP 119/65
[2020-01-12 05:11] LABS: BASO % 0 % (0-3); EOS % 0 % (0-3); HEMATOCRIT 41.5 % (39.0-53.0); LYMPH % 6 % (24-48); MEAN CORPUSCULAR HEMOGLOBIN 32 pg (25-35); MEAN CORPUSCULAR HGB CONC 34 g/dL (31-37); MEAN CORPUSCULAR VOLUME 94 fL (79-100); MONO # 0.6 x10^3/uL (0.0-1.1); MONO % 4 % (0-9); NEUT # 16.5 x10^3/uL (1.8-7.7); NEUT % 91 % (31-73); PLATELET COUNT 509 x10^3/uL (140-400); RED BLOOD COUNT 4.41 x10^6/uL (4.30-5.70); RED CELL DISTRIBUTION WIDTH 13.3 % (11.5-14.5); WHITE BLOOD COUNT 18.1 x10^3/uL (4.0-11.0)
[2020-01-12 05:33] LABS: CALCIUM 8.7 mg/dL (8.5-10.1); CREATININE 1.2 mg/dL (0.7-1.3); GFR 60.8; POTASSIUM 4.5 mmol/L (3.5-5.1)
[2020-01-12] MEDS: methylPREDNISolone SOD SUCC PF 40 MG/ML VIAL. IV SCH ×2 (05:58→15:43)
[2020-01-12 07:10] VITALS: BP 162/72
[2020-01-12 07:53] LABS: % BANDS 4 % (0-9); % LYMPHS 5 % (24-48); % SEGS 91 % (35-66); PLT ESTIMATE ADEQUATE (ADEQUATE)
--- NOTE | 2020-01-12 08:16 | PDOC ---
Infectious Disease Note Subjective Subjective Doing ok - Still SOA with activity. occ dry cough No F/c/s/N/v/d/dysuria/rash ROS ROS o/w neg Vital Sign Vital Signs Vital Signs Date Time Temp Pulse Resp B/P (MAP) Pulse Ox O2 Delivery O2 Flow Rate FiO2 01/12/20 03:00 96.8 67 16 119/65 (83) 92 Nasal Cannula 1.5 96.8 Physical Exam PHYSICAL EXAM CONSTITUTIONAL: He is sitting upright in bed eating breakfast. He looks well. He is in no acute distress. He smiled. HEENT: Pupils equal and reactive. Normal conjunctivae. Oral cavity, pharynx is clear. No thrush. NECK: Supple. LUNGS: Without wheeze. HEART: S1 and S2. ABDOMEN: Soft, nontender. No guarding or rebound. EXTREMITIES: No clubbing, cyanosis or gross edema. SKIN: Warm to touch without generalized rash. NEUROLOGIC: He is nonfocal and appropriate. PSYCHIATRIC: Affect is pleasant. Labs Lab Laboratory Tests Test 01/12/20 04:03 White Blood Count 18.1 x10^3/uL (4.0-11.0) Red Blood Count 4.41 x10^6/uL (4.30-5.70) Hemoglobin 14.0 g/dL (13.0-17.5) Hematocrit 41.5 % (39.0-53.0) Mean Corpuscular Volume 94 fL (79-100) Mean Corpuscular Hemoglobin 32 pg (25-35) Mean Corpuscular Hemoglobin Concent 34 g/dL (31-37) Red Cell Distribution Width 13.3 % (11.5-14.5) Platelet Count 509 x10^3/uL (140-400) Neutrophils (%) (Auto) 91 % (31-73) Lymphocytes (%) (Auto) 6 % (24-48) Monocytes (%) (Auto) 4 % (0-9) Eosinophils (%) (Auto) 0 % (0-3) Basophils (%) (Auto) 0 % (0-3) Neutrophils # (Auto) 16.5 x10^3/uL (1.8-7.7) Lymphocytes # (Auto) 1.0 x10^3/uL (1.0-4.8) Monocytes # (Auto) 0.6 x10^3/uL (0.0-1.1) Eosinophils # (Auto) 0.0 x10^3/uL (0.0-0.7) Basophils # (Auto) 0.0 x10^3/uL (0.0-0.2) Segmented Neutrophils % 91 % (35-66) Band Neutrophils % 4 % (0-9) Lymphocytes % 5 % (24-48) Platelet Estimate Adequate (ADEQUATE) Sodium Level 138 mmol/L (136-145) Potassium Level 4.5 mmol/L (3.5-5.1) Chloride Level 101 mmol/L (98-107) Carbon Dioxide Level 26 mmol/L (21-32) Anion Gap 11 (6-14) Blood Urea Nitrogen 22 mg/dL (8-26) Creatinine 1.2 mg/dL (0.7-1.3) Estimated GFR (Cockcroft-Gault) 60.8 Glucose Level 148 mg/dL (70-99) Calcium Level 8.7 mg/dL (8.5-10.1) Micro CXR Impression: 1. Mixed bilateral predominantly basilar but involving all lung zones interstitial and airspace disease suggests atypical infection or chronic fibrotic change/inflammatory change Objective Assessment Leukocytosis - now on steroids. AF and Blood cults neg Acute Hypoxic Resp failure better with steroids on .- recent Azithromycin and Cephalexin H/o COVID - test here neg CAD H/o Vaping Plan Plan of Care Cont steroids - per Pulm D/w daughter - in law D/w nursing ID to sign off SHAYLEE GARCIA MD Jan 12, 2020 08:16
[2020-01-12] MEDS: LISINOPRIL 10 MG TABLET PO SCH (09:00)
[2020-01-12] MEDS: NAPROXEN 500 MG TABLET PO SCH (09:52)
[2020-01-12] MEDS: ATENOLOL 50 MG TABLET. PO SCH (09:52)
[2020-01-12] MEDS: ASPIRIN ENTERIC COATED 81 MG TABLET.DR. PO SCH (09:52)
[2020-01-12] MEDS: PANTOPRAZOLE 40 MG TABLET.DR. PO SCH (09:52)
--- NOTE | 2020-01-12 09:56 | PDOC ---
[employer] [facility] PROGRESS NOTE Chief Complaint Chief Complaint Respiratory distress COVID-19 pneumonia, negative on repeat testing HLD CAD s/p CABG Olsen esophagus History of Present Illness History of Present Illness 01/12/2020 Patient seen and examined Resting, NAD Discussed with RN Chart reviewed 01/11/2020 Patient seen and examined Discussed with [id number] Discussed with RN Chart reviewed Vitals/I&O Vitals/I&O: Vital Signs Date Time Temp Pulse Resp B/P (MAP) Pulse Ox O2 Delivery O2 Flow Rate FiO2 01/12/20 07:10 96.9 78 24 162/72 (102) 95 Nasal Cannula 1.5 96.9 I & O 01/11/20 01/11/20 01/12/20 15:00 23:00 07:00 Intake Total 240 ml 800 ml 200 ml Output Total 1900 ml Balance 240 ml -1100 ml 200 ml Physical Exam Physical Exam: CONSTITUTIONAL: He is resting in bed, NAD HEENT: Normocephalic, atraumatic NECK: Supple. LUNGS: Without wheeze. HEART: S1 and S2. ABDOMEN: Soft, nontender. No guarding or rebound. EXTREMITIES: No clubbing, cyanosis or gross edema. SKIN: Warm to touch without generalized rash. NEUROLOGIC: He is nonfocal and appropriate. PSYCHIATRIC: Affect is pleasant. General: No acute distress Heart: Regular rate, Normal S1, Normal S2 Lungs: Clear Abdomen: Soft, No tenderness Extremities: No cyanosis, No edema Skin: No rashes, No significant lesion Labs Labs: Laboratory Tests Test 01/12/20 04:03 White Blood Count 18.1 x10^3/uL (4.0-11.0) Red Blood Count 4.41 x10^6/uL (4.30-5.70) Hemoglobin 14.0 g/dL (13.0-17.5) Hematocrit 41.5 % (39.0-53.0) Mean Corpuscular Volume 94 fL (79-100) Mean Corpuscular Hemoglobin 32 pg (25-35) Mean Corpuscular Hemoglobin Concent 34 g/dL (31-37) Red Cell Distribution Width 13.3 % (11.5-14.5) Platelet Count 509 x10^3/uL (140-400) Neutrophils (%) (Auto) 91 % (31-73) Lymphocytes (%) (Auto) 6 % (24-48) Monocytes (%) (Auto) 4 % (0-9) Eosinophils (%) (Auto) 0 % (0-3) Basophils (%) (Auto) 0 % (0-3) Neutrophils # (Auto) 16.5 x10^3/uL (1.8-7.7) Lymphocytes # (Auto) 1.0 x10^3/uL (1.0-4.8) Monocytes # (Auto) 0.6 x10^3/uL (0.0-1.1) Eosinophils # (Auto) 0.0 x10^3/uL (0.0-0.7) Basophils # (Auto) 0.0 x10^3/uL (0.0-0.2) Segmented Neutrophils % 91 % (35-66) Band Neutrophils % 4 % (0-9) Lymphocytes % 5 % (24-48) Platelet Estimate Adequate (ADEQUATE) Sodium Level 138 mmol/L (136-145) Potassium Level 4.5 mmol/L (3.5-5.1) Chloride Level 101 mmol/L (98-107) Carbon Dioxide Level 26 mmol/L (21-32) Anion Gap 11 (6-14) Blood Urea Nitrogen 22 mg/dL (8-26) Creatinine 1.2 mg/dL (0.7-1.3) Estimated GFR (Cockcroft-Gault) 60.8 Glucose Level 148 mg/dL (70-99) Calcium Level 8.7 mg/dL (8.5-10.1) Review of Systems Review of Systems: Pertinent as per HPI, otherwise 10 point review of systems is negative Assessment and Plan Assessmemt and Plan Problems Medical Problems: (1) Hypoxia Status: Acute (2) Pneumonia due to COVID-19 virus Status: Acute ASSESSMENT Respiratory distress COVID-19 pneumonia, negative on repeat testing HLD CAD s/p CABG Olsen esophagus PLAN Continue current care Appreciate subspecialist input DVT prophylaxis Full code Discharge disposition pending Comment Review of Relevant I have reviewed the following items lexie (where applicable) has been applied. Justicifation of Admission Dx: Justifications for Admission: Justification of Admission Dx: Yes Comminuty Aquired Pneumonia: Hypoxemia LARS SHELLEY III DO Jan 12, 2020 09:56
[2020-01-12 11:15] VITALS: BP 147/68
--- NOTE | 2020-01-12 11:34 | PDOC ---
PULMONARY PROGRESS NOTES Subjective no soa Vitals Vital Signs Date Time Temp Pulse Resp B/P (MAP) Pulse Ox O2 Delivery O2 Flow Rate FiO2 01/12/20 09:52 78 162/72 01/12/20 08:00 Nasal Cannula 1.5 01/12/20 07:10 96.9 24 95 96.9 General: Alert, No acute distress Lungs: Clear Cardiovascular: S1 Abdomen: Soft Neuro Exam: Alert Extremities: No Edema Skin: Warm Labs Laboratory Tests Test 01/10/20 22:10 01/12/20 04:03 Coronavirus (PCR) Not detected (Not Detected) White Blood Count 18.1 x10^3/uL (4.0-11.0) Red Blood Count 4.41 x10^6/uL (4.30-5.70) Hemoglobin 14.0 g/dL (13.0-17.5) Hematocrit 41.5 % (39.0-53.0) Mean Corpuscular Volume 94 fL (79-100) Mean Corpuscular Hemoglobin 32 pg (25-35) Mean Corpuscular Hemoglobin Concent 34 g/dL (31-37) Red Cell Distribution Width 13.3 % (11.5-14.5) Platelet Count 509 x10^3/uL (140-400) Neutrophils (%) (Auto) 91 % (31-73) Lymphocytes (%) (Auto) 6 % (24-48) Monocytes (%) (Auto) 4 % (0-9) Eosinophils (%) (Auto) 0 % (0-3) Basophils (%) (Auto) 0 % (0-3) Neutrophils # (Auto) 16.5 x10^3/uL (1.8-7.7) Lymphocytes # (Auto) 1.0 x10^3/uL (1.0-4.8) Monocytes # (Auto) 0.6 x10^3/uL (0.0-1.1) Eosinophils # (Auto) 0.0 x10^3/uL (0.0-0.7) Basophils # (Auto) 0.0 x10^3/uL (0.0-0.2) Segmented Neutrophils % 91 % (35-66) Band Neutrophils % 4 % (0-9) Lymphocytes % 5 % (24-48) Platelet Estimate Adequate (ADEQUATE) Sodium Level 138 mmol/L (136-145) Potassium Level 4.5 mmol/L (3.5-5.1) Chloride Level 101 mmol/L (98-107) Carbon Dioxide Level 26 mmol/L (21-32) Anion Gap 11 (6-14) Blood Urea Nitrogen 22 mg/dL (8-26) Creatinine 1.2 mg/dL (0.7-1.3) Estimated GFR (Cockcroft-Gault) 60.8 Glucose Level 148 mg/dL (70-99) Calcium Level 8.7 mg/dL (8.5-10.1) Laboratory Tests Test 01/12/20 04:03 White Blood Count 18.1 x10^3/uL (4.0-11.0) Red Blood Count 4.41 x10^6/uL (4.30-5.70) Hemoglobin 14.0 g/dL (13.0-17.5) Hematocrit 41.5 % (39.0-53.0) Mean Corpuscular Volume 94 fL (79-100) Mean Corpuscular Hemoglobin 32 pg (25-35) Mean Corpuscular Hemoglobin Concent 34 g/dL (31-37) Red Cell Distribution Width 13.3 % (11.5-14.5) Platelet Count 509 x10^3/uL (140-400) Neutrophils (%) (Auto) 91 % (31-73) Lymphocytes (%) (Auto) 6 % (24-48) Monocytes (%) (Auto) 4 % (0-9) Eosinophils (%) (Auto) 0 % (0-3) Basophils (%) (Auto) 0 % (0-3) Neutrophils # (Auto) 16.5 x10^3/uL (1.8-7.7) Lymphocytes # (Auto) 1.0 x10^3/uL (1.0-4.8) Monocytes # (Auto) 0.6 x10^3/uL (0.0-1.1) Eosinophils # (Auto) 0.0 x10^3/uL (0.0-0.7) Basophils # (Auto) 0.0 x10^3/uL (0.0-0.2) Segmented Neutrophils % 91 % (35-66) Band Neutrophils % 4 % (0-9) Lymphocytes % 5 % (24-48) Platelet Estimate Adequate (ADEQUATE) Sodium Level 138 mmol/L (136-145) Potassium Level 4.5 mmol/L (3.5-5.1) Chloride Level 101 mmol/L (98-107) Carbon Dioxide Level 26 mmol/L (21-32) Anion Gap 11 (6-14) Blood Urea Nitrogen 22 mg/dL (8-26) Creatinine 1.2 mg/dL (0.7-1.3) Estimated GFR (Cockcroft-Gault) 60.8 Glucose Level 148 mg/dL (70-99) Calcium Level 8.7 mg/dL (8.5-10.1) Medications Active Scripts Medications Dose Route/Sig Max Daily Dose Days Date Category Acetaminophen 500 Mg Tablet 2 Tab PO PRN Q8HRS PRN 15 01/10/20 Reported Trazodone Hcl 100 Mg Tablet 1 Tab PO QHS 01/10/20 Reported Protonix (Pantoprazole Sodium) 40 Mg Tablet. 40 Mg PO DAILYAC 01/10/20 Reported Naproxen 500 Mg Tablet 1 Tab PO BID 30 01/10/20 Reported Lisinopril 10 Mg Tablet 1 Tab PO DAILY 01/10/20 Reported Atorvastatin Calcium 40 Mg Tablet 1 Tab PO DAILY 01/10/20 Reported Atenolol 50 Mg Tablet 1 Tab PO DAILY 01/10/20 Reported Aspirin Ec (Aspirin) 81 Mg Tablet. 1 Tab PO DAILY 01/10/20 Reported Impression . 1. Acute hypoxic respiratory failure secondary to COVID-19 pneumonia. repeat test neg 2. Abnormal chest x-ray consistent with COVID-19 pneumonia. Plan . RECOMMENDATIONS: 1. We will continue with present oxygen at 2 liters and keep saturation 92 and above. 6 min walk today 2. Empiric antibiotics.change to PO 3. CHANGE TO po steroids. 5. Discussed with the patient's RN. clinically better ok with [facility] GUNJAN IRELAND MD Jan 12, 2020 11:34
[2020-01-12] MEDS ORDERED: CALCIUM CARBONATE 500 MG TAB.CHEW PO PRN (12:30)
--- NOTE | 2020-01-12 15:17 | NUR ---
PRESCRIPTION CALLED INTO [facility] ON [address] IN [facility]. PER DR IRELAND. PREDNISONE 10MG TAKE 3 TABS DAILY FOR 2 DAYS THEN 2 TABS DAILY FOR 2 DAYS THEN 1 TAB DAILY X 2 DAYS.
--- NOTE | 2020-01-12 16:09 | NUR ---
SW following. Spoke with RN and CM. Reviewed chart. Pt to discharge home today on oral medications. REGGIE waiting on 6 min walk to see if 02 setup is needed. REGGIE called respiratory to coordinate care. Addendum: 01/12/20 at 1710 by KEITH PAREDES Pt does require 02. REGGIE phoned and faxed orders and clinicals to [facility], , (fax). REGGIE confirmed orders were received. Pt to discharge home today with family. [facility] to coordinate 02 setup in the home with pt's dtr-in-law Zoraida at [phone]. Zoraida provided with contact number for [facility]. 02 tank given to pt for transport home per approval from Zane with [facility]. No further SW needs at this time. Patient's Address [address] [place] [address]
--- NOTE | 2020-01-12 17:30 | NUR ---
PT DISCHARGED HOME WITH FAMILY. DISCHARGE TEACHING DONE WITH FAMILY. QUESTIONS ANSWERED. PT SENT HOME WITH TED.
--- NOTE | 2020-02-08 12:56 | DS ---
DATE OF DISCHARGE: 01/12/2020 ADMISSION DIAGNOSES: Pneumonia, respiratory distress, hyperlipidemia, previous history of CABG, Olsen's esophagitis. DISCHARGE DIAGNOSES: Resolving pneumonia secondary to COVID-19 (his repeat test was negative). CONSULTS: Pulmonary Medicine, Infectious Disease. HOSPITAL COURSE: The patient is a pleasant middle-aged male, who presented with shortness of breath, was noted to have pneumonia and he tested positive for COVID-19 at a clinic at [facility]. We admitted the patient. The above consults were obtained. We retested tested him for COVID-19 but it was actually negative. We did treat him with antibiotics, breathing treatments and oxygen. Over the next few days, he returned to his baseline. We discharged to home. DISPOSITION: Home. ACTIVITY: As tolerated. DIET: Low sodium. MEDICATIONS: Please see the MRAD. TOTAL TIME: 34 minutes. LEONARDOL Le SHELLEY DO DR: TRESA/latricia JOB#: [id number] / [id number]
== END 2020-01-12 17:30 | disposition home or self-care (01) | DRG 177 ==
LOC: ER 10:03 → 6 SOUTH 14:48
PROVIDERS: ADMIT Internal Medicine; ATTEND Internal Medicine
DX: U07.1 COVID-19 (principal); J96.01 Acute respiratory failure with hypoxia; J12.89 Other viral pneumonia; E78.00 Pure hypercholesterolemia, unspecified; E78.5 Hyperlipidemia, unspecified; F17.210 Nicotine dependence, cigarettes, uncomplicated; F41.9 Anxiety disorder, unspecified; I10 Essential (primary) hypertension; I25.10 Atherosclerotic heart disease of native coronary artery without angina pectoris; K22.70 Barrett's esophagus without dysplasia; Z83.3 Family history of diabetes mellitus; Z86.19 Personal history of other infectious and parasitic diseases; Z95.1 Presence of aortocoronary bypass graft; Z20.828 Contact with and (suspected) exposure to other viral communicable diseases
CPT/HCPCS: 36415; 71045; 80048; 80053; 81001; 83605; 83880; 84484; 85007; 85025; 85610; 85730; 87040; 93005; 96374; 96375; 99285; J0696; J2920; J2930; G0378; U0003-CS

== ENCOUNTER → 2020-04-14 | Outpatient (CLI) | payer OTHER, MEDICAID ==
[~2020-04-14] MED LIST: ACET500T68 PO; ASPI-886 PO; ATEN50TA PO; ATOR40TA59 PO; LISI10TA2 PO; NAPR-514 PO; PANT40TA77 PO; TRAZ-123 PO
--- NOTE | 2020-04-14 11:10 | CARD ---
MR#: [id number] Date of Study: 04/14/2020 Ordering Physician: JANET MANDUJANO, Referring Physician: JANET MANDUJANO, Tech: Destiny Blackwell [facility] APPROVED REPORT EXAM: Two-dimensional and M-mode echocardiogram with Doppler and color Doppler. Other Information Quality : Good INDICATION Cardiac Disease: CAD 2D DIMENSIONS RVDd2.5 (2.9-3.5cm)Left Atrium(2D)3.4 (1.6-4.0cm) IVSd0.8 (0.7-1.1cm)Aortic Root(2D)3.0 (2.0-3.7cm) LVDd4.4 (3.9-5.9cm)LVOT Diameter2.1 (1.8-2.4cm) PWd0.8 (0.7-1.1cm)LVDs2.1 (2.5-4.0cm) FS (%) 30.0 %SV72.2 ml LVEF(%)60.0 (>50%) Aortic Valve AoV Peak Rebel.121.8cm/sAoV VTI25.5cm AO Peak GR.5.9mmHgLVOT Peak Rebel.83.0cm/s AO Mean GR.3mmHgAVA (VMAX)2.40cm2 MARLENE (VTI)2.40cm2 Mitral Valve MV E Yqljhjul02.6cm/sMV DECEL [id number] MV A Zxbqrzzf20.9cm/sE/A Ratio1.1 LEFT VENTRICLE The left ventricle is normal size. There is normal left ventricular wall thickness. The left ventricu lar systolic function is normal. The Ejection Fraction is 55-60%. There is normal LV segmental wall m otion. RIGHT VENTRICLE The right ventricle is normal size. The right ventricular systolic function is normal. ATRIA The left atrium size is normal. The right atrium size is normal. The interatrial septum is intact wit h no evidence for an atrial septal defect or patent foramen ovale as noted on 2-D or Doppler imaging. AORTIC VALVE The aortic valve is calcified but opens well. Doppler and Color Flow revealed no significant aortic r egurgitation. There is no significant aortic valvular stenosis. MITRAL VALVE The mitral valve is calcified but opens well. There is no evidence of mitral valve prolapse. There is no mitral valve stenosis. Doppler and Color Flow revealed no mitral valve regurgitation noted. TRICUSPID VALVE The tricuspid valve is normal in structure and function. Doppler and Color Flow revealed no tricuspid valve regurgitation noted. There is no tricuspid valve stenosis. PULMONIC VALVE The pulmonic valve is not well visualized. Doppler and Color Flow revealed trace pulmonic valvular re gurgitation. There is no pulmonic valvular stenosis. GREAT VESSELS The aortic root is normal in size. The ascending aorta is normal in size. The IVC is normal in size a nd collapses >50% with inspiration. PERICARDIAL EFFUSION There is no evidence of significant pericardial effusion. Critical Notification Critical Value: No <Conclusion> The left ventricular systolic function is normal. The Ejection Fraction is 55-60%. There is normal LV segmental wall motion. There is no evidence of significant pericardial effusion. Signed by : Javad Lawrence, Electronically Approved : 04/14/2020 11:09:35
== END ==
LOC: ECHO 08:38
PROVIDERS: ATTEND Internal Medicine Cardiovascular Disease
DX: I08.0 Rheumatic disorders of both mitral and aortic valves (principal); I25.10 Atherosclerotic heart disease of native coronary artery without angina pectoris
CPT/HCPCS: 93306

== ENCOUNTER → 2021-01-05 | Outpatient (CLI) | payer OTHER, MEDICAID ==
[~2021-01-05] MED LIST changes: +LISI10TA16 PO; -LISI10TA2 PO; +REGADENOSON 0.4 MG/5 ML DISP.SYRIN. IV ONE
--- NOTE | 2021-01-05 15:55 | RAD ---
MR#: [id number] Date of Study: 01/05/2021 Ordering Physician: JANET MANDUJANO, Referring Physician: ANTONELLA GREEN Tech: BRADFORD West, ARRT (R) (N) APPROVED REPORT Test Type: Pharmacological Stress Nurse/Tech: Stephania Marinelli RN Test Indications: CAD Cardiac History: CABG, HTN, See EMR. Medications: ASA, See EMR. Medical History: COPD, X-Smoker Quit=3yrs ago, See EMR. Resting ECG: SB Resting Heart Rate: 51 bpm Resting Blood Pressure: 104/58mmHg Pretest Chest Pain: No chest pain Nurse/Tech Notes Lungs CTA, Heart tones regular. Consent: The procedure was explained to the patient in lay terms. Informed consent was witnessed. Aaron eout was entered into [facility]. History and Stress Test performed by RT Elier (R) (N) Pharm. Details Pharmacologic stress testing was performed using 0.4mg per 5ml of regadenoson given intravenously ove r 7-10 seconds. Stress Symptoms No chest pain or symptoms. Pt's O2 sats on RA throughout test >=96%. POST EXERCISE Reason for Termination: Infusion complete Max HR: 76 bpm Max Blood Pressure: 109/63mmHg Blood Pressure response to exercise: Normal blood pressure response during stress. Heart Rate response to exercise: WNL Chest Pain: No. Arrhythmia: No. ST Change: No. INTERPRETATION Stress EKG Conclusion: The resting EKG shows a sinus rhythm with slight nonspecific ST-T wave changes . The stress EKG shows no significant changes from baseline. No EKG evidence of stress-induced ischemia. Imaging Protocol IMAGE PROTOCOL: Rest Tc-99m/stress Tc-99m 1 day Rest: Stress: Viability: Radiopharm.Tc99m QpvgmnhhwGr72s Sestamibi Jzcr27xNr 32.1mCi Img Date 01/05/2021 01/05/2021 Inj-Img [id number]. 60min. Rest Admin Site:IV - Right AntecubitalAdministrator:MICHAEL Norton Stress Admin Site: IV - Right AntecubitalAdministrator: Melissa Marques, RT (R)(N) STRESS DATA End Diast. Vol.73.0mlLVEDV index BSA41.0ml End Syst. Vol.20.0mlLVESV index BSA11.0ml Myocardial Saii134.0gEject. Kggnlkjd20.0% Stress Scores Regional WT0.00Summed WT5.00 Regional WM0.00Summed WM4.00 LV Perfusion The stress scans show no significant defects. The rest scans show no significant defects. Nuclear imaging shows no reversible ischemia or infarct. Wall Motion Left ventricular systolic function is normal with no regional wall motion abnormalities and an ejecti on fraction of 70%. LV Perf. Quant 17 Seg. SSS0.00 17 Seg. SRS0.00 17 Seg. SDS0.00 Stress Defect Extent (% LAD)0.00Rest Defect Extent (% LAD)0.00Rev. Defect Extent (% LAD)0.00 Stress Defect Extent (% LCX) 7.50Rest Defect Extent (% LCX)0.00Rev. Defect Extent (% LCX)3.80 Stress Defect Extent (% RCA)0.00Rest Defect Extent (% RCA)0.00Rev. Defect Extent (% RCA)0.00 Stress Defect Extent (% RENY)1.30Rest Defect Extent (% RENY)0.00Rev. Defect Extent (% RENY)0.70 Conclusion 1. No EKG evidence of stress-induced ischemia. 2. Nuclear imaging shows no reversible ischemia or infarct. 3. Normal left ventricular systolic function with an ejection fraction of 70%. 4. Low risk Lexiscan nuclear stress test. Signed by : Cordell Lofton MD Electronically Approved : 01/05/2021 15:54:40
--- NOTE | 2021-01-08 07:32 | RAD ---
MR#: [id number] Date of Study: 01/05/2021 Ordering Physician: JANET MANDUJANO, Referring Physician: JANET MANDUJANO, Tech: Cleveland Peralta MBA, RDMS, RVT, RDCS, RTR APPROVED REPORT Patient Location: OUT-PATIENT Laterality:Bilateral Indications carotid artery disease Surgery/Intervention Endarterectomy: right Doppler Spectral Velocity Analysis Right Left pCCA 72/17 cm/spCCA 64/20 cm/s mCCA 83/20 cm/smCCA 135/44 cm/s dCCA 102/21 cm/sdCCA 160/41 cm/s Bulb 57/11 cm/sBulb 58/14 cm/s ECA 66/ cm/sECA 93/ cm/s pICA 64/24 cm/spICA 158/33 cm/s Kermit 71/23 cm/smICA 86/34 cm/s dICA 67/24 cm/sdICA 54/24 cm/s Vert. 52/ cm/sVert. 41/ cm/s Subcl. 67/ cm/sSubcl. 93/ cm/s ICA/CCA 0.70ICA/CCA 2.47 Findings Grayscale images the bilateral carotid vessels demonstrates mild to moderate diffuse atherosclerosis. On the right side overall 0 to less than 50% stenosis based on velocity criteria with normal ICA to C CA ratios and antegrade vertebral velocities. On the left side there is likely moderate carotid disease based on velocity criteria of elevated [place] in the distal common carotid and proximal internal carotid arteries. This may be secondary to tortuosity. Nonetheless, normal ICA to CCA ratios are noted on the left side. Normal antegrade cheryl tebral velocities are noted. Normal bilateral subclavian velocities. Critical Notification Critical Value: No <Conclusion> 1. Mild to moderate left carotid occlusive disease. No significant right-sided disease Signed by : Janet Mandujano, Electronically Approved : 01/08/2021 07:32:17
== END ==
LOC: NM 09:14
PROVIDERS: ATTEND Internal Medicine Cardiovascular Disease
DX: I65.23 Occlusion and stenosis of bilateral carotid arteries (principal); I25.10 Atherosclerotic heart disease of native coronary artery without angina pectoris; I77.9 Disorder of arteries and arterioles, unspecified
CPT/HCPCS: 78452; 93017; 93880; A9500; J2785